=== PATIENT | male | born 1970 | race American Indian/Alaskan Native ===

== ENCOUNTER 2017-03-23 01:30 | Emergency (ER) | payer SELFPAY ==
[2017-03-23 02:56] LABS: Basophils % (Auto) 0.2 % (0.0-1.8); Eosinophils % (Auto) 3.2 % (0.0-4.3); Hematocrit 36.7 % (35.5-45.6); Hemoglobin 12.3 gm/dl (11.8-15.2); Mean Corpuscular HGB Conc 33 % (32-34); Mean Corpuscular Hemoglobin 30 pg (28-32); Mean Corpuscular Volume 90 fl (84-94); Platelet Count 178 K/mm3 (140-440); Red Blood Count 4.09 M/mm3 (3.65-5.03); Red Cell Distribution Width 14.5 % (13.2-15.2); White Blood Count 5.2 K/mm3 (4.5-11.0)
[2017-03-23 03:45] LABS: Anion Gap 19 mmol/L; Blood Urea Nitrogen 15 mg/dL (9-20); Calcium 9.4 mg/dL (8.4-10.2); Carbon Dioxide 22 mmol/L (22-30); Chloride 108.5 mmol/L (98-107); Glucose 101 mg/dL (75-100); Potassium 4.8 mmol/L (3.6-5.0); Sodium 145 mmol/L (137-145)
--- NOTE | 2017-03-23 06:45 | Emergency Department Report ---
HPI - General Chief Complaint: Chest Pain Time Seen by Provider: 03/23/17 06:44 - HPI HPI: patient with h/o graves' disease and associated tachycardia, is here with palpitations and mild chest pain, for the past two days, since he ran out his medications. patient states the symptoms are intermittent, and he is on his way to [place] to see about his sick mother so he wanted to come get his prescriptions before he left town. ED Past Medical Hx - Past Medical History Previous Medical History?: Yes Additional medical history: graves disease, h/o tachycardia - Surgical History Past Surgical History?: No - Family History Family history: hypertension - Social History Smoking Status: Never Smoker Substance Use Type: None - Medications Home Medications: Home Medications Medication Instructions Recorded Confirmed Last Taken Type Atenolol 2 tab PO DAILY #60 03/23/17 Unknown Rx Methimazole 2 tab PO DAILY #60 03/23/17 Unknown Rx ED Review of Systems ROS: Stated complaint: CHEST PAIN Other details as noted in HPI Comment: All other systems reviewed and negative Constitutional: no symptoms reported Cardiovascular: chest pain Endocrine: no symptoms reported Physical Exam - Physical Exam Vital Signs: Vital Signs 03/23/17 03/23/17 03/23/17 01:43 05:43 06:23 Temperature 98.3 F 98.6 F Pulse Rate 98 H 99 H 97 H Respiratory 30 H 18 35 H Rate Blood Pressure 133/89 132/83 121/83 O2 Sat by Pulse 99 Oximetry Physical Exam: GENERAL: The patient is well-developed well-nourished. HEENT: Normocephalic. Atraumatic. Extraocular motions are intact. Patient has moist mucous membranes. NECK: Supple. No meningitic signs are noted. There is no adenopathy noted. CHEST/LUNGS: Clear to auscultation. There is no respiratory distress noted. HEART/CARDIOVASCULAR: Regular. There is no tachycardia. There is no gallop rub or murmur. ABDOMEN: Abdomen is soft, nontender. Patient has normal bowel sounds. There is no abdominal distention. SKIN: There is no rash. There is no edema. There is no diaphoresis. NEURO: The patient is awake, alert, and oriented. The patient is cooperative. The patient has no focal neurologic deficits. The patient has normal speech and gait. Cranial nerves II through XII grossly intact, no drift. Negative Romberg MUSCULOSKELETAL: good rom in all ext ED Course Vital Signs 03/23/17 03/23/17 03/23/17 01:43 05:43 06:23 Temperature 98.3 F 98.6 F Pulse Rate 98 H 99 H 97 H Respiratory 30 H 18 35 H Rate Blood Pressure 133/89 132/83 121/83 O2 Sat by Pulse 99 Oximetry ED Medical Decision Making - Lab Data Result diagrams: 03/23/17 02:30 03/23/17 02:30 Critical care attestation.: If time is entered above; I have spent that time in minutes in the direct care of this critically ill patient, excluding procedure time. ED Disposition Clinical Impression: Hyperthyroidism, Graves' disease Chest pain Qualifiers: Chest pain type: unspecified Qualified Code(s): R07.9 - Chest pain, unspecified Disposition: DC-01 TO HOME OR SELFCARE Is pt being admited?: No Does the pt Need Aspirin: No Condition: Stable Instructions: Chest Pain (ED) Prescriptions: Atenolol 2 tab PO DAILY #60 Methimazole 2 tab PO DAILY #60 Referrals: PRIMARY CARE, [Primary Care Provider] - 3-5 Days
[2017-03-23 07:12] VITALS: BP 119/76
== END 2017-03-23 07:11 | disposition home or self-care (01) ==
LOC: ED 01:30
DX: R07.9 Chest pain, unspecified (principal); E05.00 Thyrotoxicosis with diffuse goiter without thyrotoxic crisis or storm
CPT/HCPCS: 36415; 80048; 84439; 84443; 84484; 85025; 93005; 93010; 99284